=== PATIENT | female | born 1935 | race Caucasian/White ===

== ENCOUNTER → 2018-12-02 | Outpatient (CLI) | payer MEDICARE, BC ==
[~2018-12-02] MED LIST: ATOR1TAB19; ISOVUE-370 76% 100ML VIAL (Q9967) As Ordered ONE; LISI10TA4; METF500T13; SULF1TAB93
--- NOTE | 2018-12-02 16:08 | REP ---
CT of the abdomen and pelvis with IV contrast, without bowel contrast: Dual phase imaging is performed, initially during the arterial phase of imaging followed by scanning during the renal excretion phase of enhancement. The patient has as abnormal urine cytolog and year and histolog findings. The comparison is 07/15/2013. There is a mass along the posterior bladder wall measuring 3.7 cm in diameter. This was not present previously. There is no hydronephrosis or hydroureter. There are no renal masses. There are no renal cysts. The adrenals are unremarkable. The visualized lung fuentes are unremarkable. No lung nodules are identified. The hepatic parenchyma is homogeneous. There are surgical clips in the gallbladder fossa. The pancreas is unremarkable. The spleen is unremarkable except for calcified granulomas. The abdominal aorta is unremarkable except for calcified atheroma. There is no periaortic adenopathy or mass. The bowel and mesentery are unremarkable. Pelvis: There is diverticulosis of the sigmoid colon without evidence of diverticulitis. There is no ascites or adenopathy. There are no lytic, blastic or destructive skeletal changes. There is degenerative disc disease throughout the lumbar spine. Impression: There is a 3.7 cm posterior bladder wall mass. There is no hydronephrosis. There is no abdominal or retroperitoneal adenopathy or mass. Sigmoid diverticulosis without diverticulitis. Calcified granulomas in the spleen. Electronically Signed by Abdias Ruggiero MD 12/02/2018 04:00 P
== END ==
LOC: M RAD 13:32
PROVIDERS: ATTEND Registered Nurse Emergency
DX: R82.8 Abnormal findings on cytological and histological examination of urine (principal); K57.30 Diverticulosis of large intestine without perforation or abscess without bleeding; N32.89 Other specified disorders of bladder; D73.89 Other diseases of spleen
CPT/HCPCS: 74177; Q9967

== ENCOUNTER 2019-03-04 16:45 | Emergency (ER) | payer MEDICARE, BC ==
[~2019-03-04] VITALS: Ht 149.9 cm; Wt 53.6 kg
[2019-03-04] MEDS ORDERED: ATOR1TAB19 (16:56)
[2019-03-04] MEDS ORDERED: LISI10TA4 (16:56)
[2019-03-04] MEDS ORDERED: METF500T13 (16:56)
[2019-03-04] MEDS ORDERED: SULF1TAB93 (16:56)
[2019-03-04 17:34] LABS: BASO % 0.3 % (0.0-1.0); EOS # 0.2 10^3/uL (0.0-0.5); EOS % 1.5 % (0.0-3.0); HEMATOCRIT 31.6 % (36.0-47.0); LYMPH # 2.6 10^3/uL (1.5-5.0); LYMPH % 16.5 % (24.0-44.0); MEAN CORPUSCULAR HEMOGLOBIN 30.1 pg (27.0-33.0); MEAN CORPUSCULAR HGB CONC 31.6 g/dl (32.0-36.5); MEAN CORPUSCULAR VOLUME 95.2 fl (80.0-96.0); MONO # 1.1 10^3/uL (0.0-0.8); MONO % 6.9 % (0.0-5.0); NEUTROPHILS # 11.5 10^3/uL (1.5-8.5); NEUTROPHILS % 74.1 % (36.0-66.0); PLATELET COUNT, AUTOMATED 333 10^3/uL (150-450); RED BLOOD COUNT 3.32 10^6/uL (4.00-5.40); WHITE BLOOD COUNT 15.6 10^3/uL (4.0-10.0)
[2019-03-04] MEDS ORDERED: ONDANSETRON 4MG/2ML VIAL (J2405) IV ONE (17:45)
[2019-03-04] MEDS ORDERED: NS 1,000 ML IV ONE (17:45)
[2019-03-04] MEDS ORDERED: KETOROLAC 30 MG/ML VIAL (J1885) IV ONE (17:45)
[2019-03-04 17:58] LABS: ALBUMIN 3.1 GM/DL (3.2-5.2); ALT/SGPT 14 U/L (12-78); BILIRUBIN,DIRECT < 0.1 MG/DL (0.0-0.2); BILIRUBIN,TOTAL 0.2 MG/DL (0.2-1.0); BLOOD UREA NITROGEN 27 MG/DL (7-18); CALCIUM LEVEL 10.7 MG/DL (8.8-10.2); CARBON DIOXIDE LEVEL 22 MEQ/L (21-32); CHLORIDE LEVEL 109 MEQ/L (98-107); CREATININE FOR GFR 2.74 MG/DL (0.55-1.30); GLOMERULAR FILTRATION RATE 17.6 (>32); GLUCOSE, FASTING 206 MG/DL (70-100); LIPASE 413 U/L (73-393); SODIUM LEVEL 138 MEQ/L (136-145); TOTAL PROTEIN 7.2 GM/DL (6.4-8.2)
--- NOTE | 2019-03-04 18:15 | REPVR ---
PROCEDURE INFORMATION: Exam: CT Abdomen And Pelvis Without Contrast Exam date and time: 03/04/2019 5:37 PM Age: 84 years old Clinical history: Abdominal pain; Additional info: Abd pain TECHNIQUE: Imaging protocol: Computed tomography of the abdomen and pelvis without contrast. Radiation optimization: All CT scans at this facility use at least one of these dose optimization techniques: automated exposure control; mA and/or kV adjustment per patient size (includes targeted exams where dose is matched to clinical indication); or iterative reconstruction. COMPARISON: CT ABD PELVIS WITH CONTRAST 12/02/2018 2:16 PM FINDINGS: Lungs: Mild cylindrical bronchiectasis both lung bases. Bibasilar atelectasis. Mediastinum: A small hiatal hernia is present. Liver: Normal. No mass. Gallbladder and bile ducts: There has been a cholecystectomy. Pancreas: Normal. No ductal dilation. Spleen: The spleen demonstrates punctate calcifications, consistent with remote granulomatous organism exposure. Adrenals: There is bilateral adrenal hyperplasia. Kidneys and ureters: See Bladder Finding. Stomach and bowel: Moderate diverticulosis is present in the distal colon. No diverticulitis. Appendix: No evidence of appendicitis. Intraperitoneal space: Unremarkable. No free air. No significant fluid collection. Vasculature: The aorta demonstrates moderate atherosclerotic calcification. Lymph nodes: Calcified right hilar lymph nodes. Bladder: Moderate to severe hydroureteronephrosis on the right secondary to obstruction from a bladder mass. No obstructing calculus demonstrated. No significant hydroureteronephrosis on the left. Small amount of air within the bladder likely iatrogenic. Reproductive: Interval increase in the size of a mass in the bladder now measuring 6.6 x 3.7 x 3.5 cm extending posteriorly to invade the anterior aspect of the vagina obliterating the fat plane between the two. Stop hysterectomy Bones/joints: The spine demonstrates moderate degenerative changes. Mild to moderate central spinal stenosis L3-4, severe central spinal stenosis at L4-5 and mild central spinal stenosis at L5-S1 with multilevel disc space narrowing at L2-3, L3-4 and L5-S1. Soft tissues: Bilateral inguinal hernias. Other findings: Osteoporosis. IMPRESSION: 1. There has been a cholecystectomy. 2. Small hiatal hernia. 3. There is bilateral adrenal hyperplasia. 4. Moderate diverticulosis is present in the distal colon. No diverticulitis. 5. Moderate to severe hydroureteronephrosis on the right secondary to obstruction from a bladder mass. No obstructing calculus demonstrated. No significant hydroureteronephrosis on the left. 6. Interval increase in the size of a mass in the bladder now measuring 6.6 x 3.7 x 3.5 cm extending posteriorly to invade the anterior aspect of the vagina obliterating the fat plane between the two. Electronically signed by: Jonas Veras On 03/04/2019 18:15:05 PM
[2019-03-04 18:48] LABS: INR 1.29; PROTHROMBIN TIME 15.8 SECONDS (11.8-14.0)
[2019-03-04] MEDS ORDERED: cefTRIAXone SOD 1 GM in D5W MINI-BAG PLUS 50 ML IV ONE (19:45)
[2019-03-04 20:54] VITALS: BP 167/70
== END 2019-03-04 20:57 | disposition short-term general hospital (02) ==
LOC: M ED 16:45
DX: R10.9 Unspecified abdominal pain (principal); N13.39 Other hydronephrosis; N32.9 Bladder disorder, unspecified; N17.9 Acute kidney failure, unspecified; K44.9 Diaphragmatic hernia without obstruction or gangrene; K57.30 Diverticulosis of large intestine without perforation or abscess without bleeding; M81.0 Age-related osteoporosis without current pathological fracture; M51.36 Other intervertebral disc degeneration, lumbar region; M48.061 Spinal stenosis, lumbar region without neurogenic claudication; I11.9 Hypertensive heart disease without heart failure; E11.9 Type 2 diabetes mellitus without complications; E78.5 Hyperlipidemia, unspecified; Z79.84 Long term (current) use of oral hypoglycemic drugs; Z79.899 Other long term (current) drug therapy
CPT/HCPCS: 36415; 74176; 80048; 80076; 81001; 83605; 83690; 85025; 85610; 87086; 96374; 96375; 99284; J0696; J1885; J2405

== ENCOUNTER → 2019-04-15 | Outpatient (CLI) | payer MEDICARE, BC ==
--- NOTE | 2019-04-15 12:08 | REP ---
RIGHT UPPER EXTREMITY VENOUS ULTRASOUND: HISTORY: Right arm swelling. 2 weeks status post port placement. FINDINGS: There is linear nonocclusive thrombus visible in the right axillary and right basilic vein proximally. Nonocclusive venous thrombosis is felt to be present here. The right subclavian, internal jugular, cephalic, and distal basilic veins are anechoic and compressible with normal color and pulsed Doppler interrogation. IMPRESSION: There is nonocclusive partial venous thrombosis involving the right axillary and proximal basilic vein. Otherwise negative. Electronically Signed by Luis Alberto Velasquez MD 04/15/2019 01:33 P
== END ==
LOC: M RAD 10:45
PROVIDERS: ATTEND Physician Assistant Medical
DX: I74.2 Embolism and thrombosis of arteries of the upper extremities (principal)
CPT/HCPCS: 93971; Q9967

== ENCOUNTER → 2019-05-14 | Outpatient (CLI) | payer MEDICARE, BC ==
--- NOTE | 2019-05-15 08:12 | REP ---
CT of the abdomen pelvis without and with IV contrast, multiphase imaging after IV contrast: Comparison is 03/04/2019. The patient has a known bladder mass along the posterior inferior bladder wall . No bladder mass is again identified today and measures 8.1 x 5.4 x 5.4 cm. Previously this mass measured 6.6 x 3.7 x 3.5 cm. The fat plane between the posterior inferior bladder wall and vaginal vault is obliterated as previously compatible with tumor invasion. There is right hydronephrosis as a consequence of the bladder mass. There has been interval placement of a percutaneous nephrostomy on the right. However, the hydronephrosis persists. There is no pelvic or periaortic adenopathy. No mesenteric adenopathy. No ascites. There is mild bronchiectasis in the visualized lower lung fuentes. The visualized lower lung fuentes otherwise unremarkable. The hepatic parenchyma is homogeneous. There are surgical clips in the gallbladder fossa. The pancreas and spleen are unremarkable except for splenic calcified granulomas. The adrenals are unremarkable. There is right hydronephrosis and right percutaneous nephrostomy. The left kidney is unremarkable. The abdominal aorta is unremarkable except for calcified atheroma. There is no periaortic adenopathy. There is descending colon/sigmoid colon diverticulosis without diverticulitis. This is unchanged. Pelvis: The appendix cannot be identified, however, there is no pericecal inflammation or abscess. The terminal ileum is unremarkable. There is no ascites. There are no lytic, blastic or destructive skeletal changes. There is advanced degenerative disc disease throughout the lumbar spine. There is spinal stenosis at L4-5. Impression: No bladder mass has increased size has invaded the soft tissues along the posterior bladder wall between the bladder and vaginal vault. There is right hydronephrosis. There is been interval placement of a percutaneous nephrostomy. The hydronephrosis persists. There is no pelvic, retroperitoneal or mesenteric adenopathy. There is no ascites. Multilevel lumbar spine degenerative disc disease with spinal stenosis at L 07/11. Electronically Signed by Abdias Ruggiero MD 05/15/2019 08:04 A
== END ==
LOC: M RAD 15:38
PROVIDERS: ATTEND Urology
DX: C67.8 Malignant neoplasm of overlapping sites of bladder (principal)
CPT/HCPCS: 74178; Q9967

== ENCOUNTER → 2019-06-22 | Outpatient (REF) | payer MEDICARE, BC ==
[~2019-06-22] MED LIST changes: -ISOVUE-370 76% 100ML VIAL (Q9967) As Ordered ONE
[2019-06-22 17:10] LABS: BASO % 0.2 % (0.0-1.0); EOS # 0.1 10^3/uL (0.0-0.5); EOS % 0.5 % (0.0-3.0); HEMATOCRIT 24.7 % (36.0-47.0); HEMOGLOBIN 7.9 g/dl (12.0-15.5); LYMPH % 10.7 % (24.0-44.0); MEAN CORPUSCULAR HEMOGLOBIN 30.6 pg (27.0-33.0); MEAN CORPUSCULAR VOLUME 95.7 fl (80.0-96.0); MONO # 1.2 10^3/uL (0.0-0.8); MONO % 6.2 % (0.0-5.0); NEUTROPHILS # 15.3 10^3/uL (1.5-8.5); NEUTROPHILS % 81.9 % (36.0-66.0); PLATELET COUNT, AUTOMATED 379 10^3/uL (150-450); RED BLOOD COUNT 2.58 10^6/uL (4.00-5.40); WHITE BLOOD COUNT 18.7 10^3/uL (4.0-10.0)
[2019-06-22 17:41] LABS: ALT/SGPT 10 U/L (12-78); BILIRUBIN,TOTAL 0.2 MG/DL (0.2-1.0); BLOOD UREA NITROGEN 8 MG/DL (7-18); C REACTIVE PROTEIN QUANTITATIV 6.24 MG/DL (0.00-0.30); CALCIUM LEVEL 8.8 MG/DL (8.8-10.2); CARBON DIOXIDE LEVEL 26 MEQ/L (21-32); CHLORIDE LEVEL 99 MEQ/L (98-107); CREATININE FOR GFR 0.73 MG/DL (0.55-1.30); GLOMERULAR FILTRATION RATE > 60.0 (>32); GLUCOSE, FASTING 139 MG/DL (70-100); POTASSIUM SERUM 4.1 MEQ/L (3.5-5.1); SODIUM LEVEL 133 MEQ/L (136-145)
[2019-06-22 18:18] LABS: ERYTHROCYTE SEDIMENTATION RATE > 140 mm/hr (0-30)
== END ==
LOC: M LAB REF 16:34
DX: C67.8 Malignant neoplasm of overlapping sites of bladder (principal)

== ENCOUNTER → 2020-02-20 | Outpatient (CLI) | payer MEDICARE, BC ==
[~2020-02-20] MED LIST changes: +AMLO1TAB24 PO; +CALC600T60 PO; +GLUCCAP4 PO; +KEYT1INJ IV; +LEXA5TAB13 PO; -METF500T13; +METF500T13 PO; +OMEP-218 PO; +[UNRECOGNIZED DRUG - REMARK]
== END ==
LOC: M LABSMTC 09:58
PROVIDERS: ATTEND Anesthesiology
DX: Z01.812 Encounter for preprocedural laboratory examination (principal); Z20.828 Contact with and (suspected) exposure to other viral communicable diseases

== ENCOUNTER 2020-02-25 10:55 | Day surgery (SDC) | payer MEDICARE, BC ==
[~2020-02-25] VITALS: Ht 149.9 cm; Wt 54.4 kg
[~2020-02-25 10:55] MED LIST changes: +BSS IRR 500ML/OMIDRIA 4ML IRR BAG (OR ONLY) (J1097 PER ML) As Ordered ONE; +CEFUROXIME 1MG/0.1ML INTRACAMERAL INJ As Ordered ONE; +DUOVISC (0.50ML VISCOAT/0.55ML PROVISC) OPHTH KIT As Ordered ONE; -KEYT1INJ IV; +MIDAZOLAM INJ 2MG/2ML VIAL (J2250 PER 1MG) As Ordered ONE; +OFLOXACIN 0.3 % (OCUFLOX) OPTH SOL 5ML OS ONE; +PHENYLEPHRINE 2.5% OPHTH SOL 2ML OS ONE; +POVIDONE-IODINE 5% OPHTH PREP SOL 30ML As Ordered ONE; +PROPARACAINE 0.5% OPHTH SOL 15ML OS ONE; +TROPICAMIDE 1% OPHTH SOLN 2ML OS ONE; +fentaNYL 100 MCG/2 ML INJECTION (J3010) As Ordered ONE
[2020-02-25] MEDS ORDERED: KEYT1INJ IV (11:24)
[2020-02-25 13:30] VITALS: BP 198/87
== END 2020-02-25 13:35 | disposition home or self-care (01) ==
LOC: M SDC 10:55
PROVIDERS: ATTEND Ophthalmology
DX: H25.12 Age-related nuclear cataract, left eye (principal); I10 Essential (primary) hypertension; E11.9 Type 2 diabetes mellitus without complications; E78.5 Hyperlipidemia, unspecified; M12.9 Arthropathy, unspecified; R94.31 Abnormal electrocardiogram [ECG] [EKG]; C67.9 Malignant neoplasm of bladder, unspecified; Z79.84 Long term (current) use of oral hypoglycemic drugs; Z79.899 Other long term (current) drug therapy; Z90.710 Acquired absence of both cervix and uterus; Z92.21 Personal history of antineoplastic chemotherapy
CPT/HCPCS: 66984; J2250; J3010; V2632

== ENCOUNTER → 2020-07-05 | Outpatient (CLI) | payer MEDICARE, BC ==
[~2020-07-05] MED LIST changes: -BSS IRR 500ML/OMIDRIA 4ML IRR BAG (OR ONLY) (J1097 PER ML) As Ordered ONE; -CEFUROXIME 1MG/0.1ML INTRACAMERAL INJ As Ordered ONE; -DUOVISC (0.50ML VISCOAT/0.55ML PROVISC) OPHTH KIT As Ordered ONE; +GASTROGRAFIN SOLUTION 30ML (Q9963) As Ordered ONE; +ISOVUE-370 76% 100ML VIAL As Ordered ONE; +KEYT1INJ IV; +LISI10TA22; -LISI10TA4; -MIDAZOLAM INJ 2MG/2ML VIAL (J2250 PER 1MG) As Ordered ONE; -OFLOXACIN 0.3 % (OCUFLOX) OPTH SOL 5ML OS ONE; -PHENYLEPHRINE 2.5% OPHTH SOL 2ML OS ONE; -POVIDONE-IODINE 5% OPHTH PREP SOL 30ML As Ordered ONE; -PROPARACAINE 0.5% OPHTH SOL 15ML OS ONE; -TROPICAMIDE 1% OPHTH SOLN 2ML OS ONE; -fentaNYL 100 MCG/2 ML INJECTION (J3010) As Ordered ONE
--- NOTE | 2020-07-05 18:21 | REP ---
INDICATION: UROTHELIAL CA. COMPARISON: CT abdomen lung windows 05/14/2019, PA chest 02/02/2013 TECHNIQUE: Bolus 100 mL Isovue 370 scanning through the chest with coronal and sagittal reconstructions. FINDINGS: Some minor dependent atelectatic changes posteriorly in the mid and lower lung zones. Some cylindrical bronchiectatic changes are seen. Small calcified granuloma about 2 x 3 mm on image 57 in the lateral basal segment right lower lobe posterior axillary line. Some subpleural scarring posteriorly in the right apex and superiorly in both apices. The right upper lobe and right middle lobe are otherwise unremarkable. The left lung shows some curvilinear fibro atelectatic change in the inferior lingular segment. Left upper lobe was otherwise unremarkable. The left lower lobe showed some peripheral subpleural fibrotic changes lateral basal segment and a calcified granuloma medial basal segment but no other significant finding. No calcified pleural plaque or pleural based mass. No pneumothorax or pneumomediastinum. Heart not grossly enlarged there is no pericardial thickening or effusion. The main, right, left and visualized lobar pulmonary arteries are without filling defects. The aorta has calcifications at the arch but is without aneurysm or dissection. Bone windows show sternum, manubrium, medial clavicles, visualized portions of scapula, humeral heads, ribs and spine without destructive lesion or definite fracture. There are marginal osteophytes throughout the spine. The upper abdomen tiny hiatal hernia suggested without reflux. Remnants of a recent meal fill the stomach along with oral contrast. Please see CT abdomen report for full details of the upper abdominal structures IMPRESSION: 1. Some calcified granulomas in bilateral lower lung zones, subpleural fibrotic changes bilaterally, curvilinear fibro atelectatic change in the inferior lingular segment and cylindrical bronchiectasis noted. 2. No aortic aneurysm or dissection. Central pulmonary arteries without filling defects. Coronary artery calcifications noted. No significant or acute finding. <Electronically signed by Juan Isabel > 07/05/20 [id number]
--- NOTE | 2020-07-05 18:42 | REP ---
INDICATION: UROTHELIAL CA. COMPARISON: CT 05/14/2019 TECHNIQUE: Oral Gastrografin per our protocol with 2 doses of the 10 mL in 290 mL clear liquid. Bolus of Isovue 371 mL given with scanning through the abdomen and pelvis and both coronal and sagittal reconstructions. Delayed images through the abdomen. FINDINGS: CT abdomen: There is a small hiatal hernia evident. Retained food from the recent meal fills the stomach along with some oral contrast. That oral contrast extends into the colon. There is no hepatosplenomegaly. There is no hepatic or splenic mass, intrahepatic biliary dilatation, cyst or ascites. Gallbladder absent with the surgical clips in the fossa. Adrenal glands unremarkable pancreas shows common duct and pancreatic duct mildly prominent but unchanged consistent with post cholecystectomy. No pancreatic mass. Abdominal aorta is calcified as are celiac axis, splenic artery, origins of the renal arteries and the iliac vessels. Kidneys show no stone, mass or cyst. Left hydronephrosis. On the right there is an extrarenal pelvis. Ureters show normal course proximally and then deviate anteriorly to the right of midline into an urostomy pouch in the right mid abdomen. The ostomy transits the right rectus muscle into the right abdominal wall. It is not distended. Small bowel loops are fluid-filled but not abnormally dilated. There is no pathologic sized periaortic, or other retroperitoneal or mesenteric lymphadenopathy. See no sign of colitis in the right, transverse colon or the flexures. There is diverticulosis of the left colon without diverticulitis. Lung window review of all CT slices shows no perforation or free air. No mesenteric or abdominal ascites or mass. Bone windows show vacuum phenomenon and disc space narrowing at throughout the lower lumbar spine from L2-3 through L5-S1. No compression deformity or destructive lesion. Facet arthropathy lower lumbar spine without spondylolysis or spondylolisthesis. Lower thoracic spine intact. Visualized ribs intact. CT pelvis: Sacrum, SI joints, iliac bones, acetabula E and ischia are without fracture or destructive lesion. Bony hips show left femoral head bone island at the basicervical region. This is stable there is been interval cystectomy. Uterus is absent. Vaginal cuff is intact. The distal left colon sigmoid and rectum are without acute findings there is some diverticulosis of the sigmoid there are few small nodes about the cecum but these are unchanged and I see no pericecal inflammatory change. No ventral, umbilical or inguinal hernia nor pathologic sized inguinal adenopathy. No pelvic lymphadenopathy. Small bowel loops in the deep pelvis fluid-filled but unremarkable and all the way to the cecum and ileocecal valve. IMPRESSION: 1. Status post cystectomy with the ureteral diversion in the ileostomy is collapsed and grossly patent through the hiatus in the right rectus muscle. No significant hydronephrosis of those an extrarenal pelvis now visible on the right side no renal mass stone or cyst. 2. No evidence of the recurrent mass in the pelvis, abdominal or pelvic pathologic sized adenopathy, ascites perforation, free air or signs of obstruction. 3. Prior cholecystectomy. Adrenal glands, pancreas and spleen grossly unremarkable. Small hiatal hernia. 4. Diverticulosis left colon and sigmoid without diverticulitis, colitis, appendicitis or other acute finding <Electronically signed by Juan Isabel > 07/05/20 [id number]
== END ==
LOC: M RAD 16:01
PROVIDERS: ATTEND Nurse Practitioner
DX: C68.9 Malignant neoplasm of urinary organ, unspecified (principal)
CPT/HCPCS: 71260; 74177; Q9963; Q9967

== ENCOUNTER → 2021-03-14 | Outpatient (CLI) | payer MEDICARE, BC ==
[~2021-03-14] MED LIST changes: +BACTDSTA; -SULF1TAB93
--- NOTE | 2021-03-14 16:45 | REPVR ---
PROCEDURE INFORMATION: Exam: CT Chest With Contrast; Diagnostic Exam date and time: 03/14/2021 2:52 PM Age: 86 years old Clinical indication: Condition or disease; Other: Bladder CA TECHNIQUE: Imaging protocol: Diagnostic computed tomography of the chest with contrast. Radiation optimization: All CT scans at this facility use at least one of these dose optimization techniques: automated exposure control; mA and/or kV adjustment per patient size (includes targeted exams where dose is matched to clinical indication); or iterative reconstruction. Contrast material: ISOVUE 370; Contrast volume: 100 ml; Contrast route: INTRAVENOUS (IV); COMPARISON: CT Chest with contrast 07/05/2020 5:44 PM FINDINGS: Lungs: There is mild atelectasis at the lung bases. There is evidence of previous granulomatous reaction, with unchanged appearance. Pleural spaces: No pleural effusion. No pneumothorax. Heart: Borderline cardiomegaly. No pericardial effusion. Pulmonary arteries: There are no abnormal filling defects within the pulmonary arterial system. The examination is negative for pulmonary thromboembolism. Aorta: The thoracic aorta is normal caliber. No aneurysm or dissection is seen. Lymph nodes: In the upper abdomen, retroperitoneal lymph nodes are prominent, measuring up to 9.7 mm. These are nonspecific but given the provided clinical history, are concerning for metastatic disease. Small to mildly prominent mediastinal and hilar lymph nodes remain within upper limits of normal. Diaphragm: Small hiatal hernia. Intestine: Several air-fluid levels are seen in the bowel, may reflect ileus or obstruction. Bones/joints: Spinal degenerative changes. No acute fracture. Soft tissues: Unremarkable. IMPRESSION: 1. No pulmonary embolism identified. 2. Small to mildly prominent mediastinal and hilar lymph nodes remain within upper limits of normal. 3. Small hiatal hernia. 4. Several air-fluid levels are seen in the bowel, may reflect ileus or obstruction. Electronically signed by: Selena Armijo On 03/14/2021 16:45:23 PM
--- NOTE | 2021-03-14 16:58 | REPVR ---
PROCEDURE INFORMATION: Exam: CT Abdomen And Pelvis With Contrast Exam date and time: 03/14/2021 2:52 PM Age: 86 years old Clinical indication: Condition or disease; Other: Bladder cancer TECHNIQUE: Imaging protocol: Computed tomography of the abdomen and pelvis with contrast. Radiation optimization: All CT scans at this facility use at least one of these dose optimization techniques: automated exposure control; mA and/or kV adjustment per patient size (includes targeted exams where dose is matched to clinical indication); or iterative reconstruction. Contrast material: ISOVUE 370; Contrast volume: 100 ml; Contrast route: INTRAVENOUS (IV); COMPARISON: CT ABD PELVIS WITH CONTRAST 07/05/2020 5:44 PM FINDINGS: Diaphragm: Small hiatal hernia. Liver: There is a diffuse decrease in hepatic parenchymal density, consistent with fatty infiltration. There are no focal liver lesions present. Gallbladder and bile ducts: Cholecystectomy. Pancreas: The pancreas is normal. Spleen: The spleen is normal. Adrenal glands: The adrenal glands are normal. Kidneys and ureters: Right ureteral stent extends through the neobladder and external to the patient. No hydronephrosis. No renal mass detected. No nephrolithiasis. Stomach and bowel: Diverticulosis coli is noted, with no inflammatory changes to indicate diverticulitis. Multiple air-fluid levels are seen in the bowel. No focal obstructing lesion identified. Consider ileus. Appendix: No evidence of appendicitis. Intraperitoneal space: No free air. No free fluid. Vasculature: Atherosclerotic vascular disease is noted. There is no evidence of an abdominal aortic aneurysm. Lymph nodes: Retroperitoneal lymph nodes measure up to 9 mm. These are nonspecific, but given the provided clinical history, metastatic disease must be considered. Urinary bladder: Previous cystectomy with neobladder construction. Reproductive: Apparent hysterectomy. Bones/joints: Apparent radiation changes adjacent to the symphysis pubis bilaterally. Spinal degenerative changes are noted. IMPRESSION: 1. Previous cystectomy with neobladder construction. 2. Right ureteral stent extends through the neobladder and external to the patient. 3. Prominent retroperitoneal lymph nodes are nonspecific but concerning for metastatic disease, given the provided history of bladder neoplasm. These are stable in appearance compared to 07/05/2020. 4. Diverticulosis coli. 5. Likely ileus. 6. Probable postradiation changes adjacent to the symphysis pubis bilaterally. 7. Small hiatal hernia. Electronically signed by: Selena Armijo On 03/14/2021 16:58:26 PM
== END ==
LOC: M RAD 12:44
PROVIDERS: ATTEND Nurse Practitioner
DX: C67.8 Malignant neoplasm of overlapping sites of bladder (principal)
CPT/HCPCS: 71260; 74177; Q9963; Q9967

== ENCOUNTER → 2021-04-04 | Outpatient (CLI) | payer MEDICARE, BC ==
[~2021-04-04] MED LIST changes: -GASTROGRAFIN SOLUTION 30ML (Q9963) As Ordered ONE; -ISOVUE-370 76% 100ML VIAL As Ordered ONE; +OMEP-173 PO; -OMEP-218 PO
== END ==
LOC: M WUC 13:18
PROVIDERS: ATTEND Nurse Practitioner Family
DX: M25.512 Pain in left shoulder (principal); W01.0XXA Fall on same level from slipping, tripping and stumbling without subsequent striking against object, initial encounter

== ENCOUNTER → 2021-09-27 | Outpatient (CLI) | payer MEDICARE, BC ==
[~2021-09-27] MED LIST changes: +LEVO75CA2 PO
== END ==
LOC: M LABSMTC 10:00
PROVIDERS: ATTEND Urology
DX: Z20.828 Contact with and (suspected) exposure to other viral communicable diseases (principal)

== ENCOUNTER → 2021-11-09 | Outpatient (CLI) | payer MEDICARE, BC | LOC: M LABSMTC 09:35 | PROVIDERS: ATTEND Urology | DX: Z20.822 Contact with and (suspected) exposure to COVID-19 (principal); Z11.52 Encounter for screening for COVID-19 ==

== ENCOUNTER 2021-11-13 18:36 | Emergency (ER) | payer MEDICARE, BC ==
[~2021-11-13] VITALS: Ht 152.4 cm; Wt 59.1 kg
[~2021-11-13 18:36] MED LIST changes: -ATOR1TAB19; +ATOR1TAB19 PO
[2021-11-13 18:37] VITALS: BP 162/70
[2021-11-13] MEDS ORDERED: LATANOPROST (20:02)
[2021-11-13] MEDS ORDERED: DORZ2SOL5 OU (20:02)
[2021-11-13] MEDS ORDERED: FLUO1OPD OS (20:02)
[2021-11-13] MEDS ORDERED: MOXI0.5S OS (20:02)
[2021-11-14] MEDS ORDERED: CYAN100050 PO (19:19)
[2021-11-14] MEDS ORDERED: VITA100093 PO (19:19)
[2021-11-14] MEDS ORDERED: REFR0.5D8 OU (19:19)
[2021-11-14] MEDS ORDERED: LEVO50TA5 PO (19:19)
[2021-11-14] MEDS ORDERED: XALA0.007 OU (19:19)
[2021-11-14] MEDS ORDERED: BIOT1CAP2 PO (19:19)
[2021-11-14] MEDS ORDERED: PRESCAP PO (19:19)
== END 2021-11-13 22:33 | disposition left against medical advice (07) ==
LOC: M ED 18:36
DX: Z53.21 Procedure and treatment not carried out due to patient leaving prior to being seen by health care provider (principal)

== ENCOUNTER 2021-11-14 09:16 | Inpatient (IN) | payer MEDICARE, BC ==
[~2021-11-14] VITALS: Ht 152.4 cm; Wt 61.2 kg
[~2021-11-14 09:16] MED LIST changes: +DORZ2SOL5 OU; +FLUO1OPD OS; +LATANOPROST; +MOXI0.5S OS; +PIPERACILLIN/TAZOBACTAM SOD 2.25 GM in D5W MINI-BAG PLUS 50 ML IV SCH
[2021-11-14] MEDS ORDERED: ACETAMINOPHEN TAB 650MG DOSE (2X325MG) PO ONE (11:30)
[2021-11-14 12:57] LABS: HEMATOCRIT 36.2 % (36.0-47.0); HEMOGLOBIN 11.8 g/dl (12.0-15.5); MEAN CORPUSCULAR HEMOGLOBIN 33.1 pg (27.0-33.0); MEAN CORPUSCULAR HGB CONC 32.6 g/dl (32.0-36.5); MEAN CORPUSCULAR VOLUME 101.4 fl (80.0-96.0); PLATELET COUNT, AUTOMATED 199 10^3/uL (150-450); RED BLOOD COUNT 3.57 10^6/uL (4.00-5.40); WHITE BLOOD COUNT 28.7 10^3/uL (4.0-10.0)
[2021-11-14 13:10] LABS: LYMPHOCYTES 5 % (16-44); MONOCYTES 1 % (0-5); NEUTROPHILS 86 % (28-66)
[2021-11-14 13:11] LABS: ANISOCYTOSIS 1+; PLATELET ESTIMATE NORMAL (NORMAL)
[2021-11-14 13:35] LABS: ALBUMIN 3.2 GM/DL (3.2-5.2); ALT/SGPT 984 U/L (12-78); BILIRUBIN,DIRECT < 0.1 MG/DL (0.0-0.2); BILIRUBIN,TOTAL 0.7 MG/DL (0.2-1.0); CK-MB VALUE MASS < 1.0 NG/ML (<3.6); CPK CREATINE PHOSPHOKINASE 88 U/L (26-192); MB/CK RELATIVE INDEX 1.14 (< OR =4); TOTAL PROTEIN 7.5 GM/DL (6.4-8.2)
[2021-11-14 14:32] LABS: HEPATITIS B SURFACE ANTIGEN NEGATIVE (NEGATIVE)
[2021-11-14 14:59] LABS: HEPATITIS B CORE ANTIBODY IGM NEGATIVE (NEGATIVE)
[2021-11-14 15:12] LABS: HEPATITIS C VIRUS ABY INDEX < 0.0 INDEX (<0.8)
[2021-11-14 15:30] LABS: APPEARANCE, URINE MANUAL TURBID (CLEAR); BILIRUBIN, URINE MANUAL NEGATIVE (NEGATIVE); BLOOD URINE MANUAL POSITIVE (NEGATIVE); COLOR, URINE MANUAL AMBER (YELLOW); GLUCOSE, URINE (UA) MANUAL NEGATIVE (NEGATIVE); KETONE, URINE MANUAL 1+ mg/dL (NEGATIVE); LEUKOCYTE ESTERASE, URINE MAN POSITIVE (NEGATIVE); NITRITE, URINE MANUAL NEGATIVE (NEGATIVE); PROTEIN, URINE MANUAL 3+ mg/dL (NEGATIVE); SPECIFIC GRAVITY,URINE MANUAL 1.015 (1.002-1.035); UROBILINOGEN, URINE MANUAL NORMAL (NORMAL)
[2021-11-14 15:34] LABS: POTASSIUM SERUM 6.1 MEQ/L (3.5-5.1)
[2021-11-14 15:41] LABS: BACTERIA, URINE LARGE AMOUNT; GRANULAR CAST, URINE 0-1 /lpf; HYALINE CAST, URINE NONE SEEN /lpf (0-1); RENAL EPITHELIAL CELLS, URINE SMALL AMOUNT /hpf; SQUAMOUS EPITHELIAL CELL URINE NONE SEEN /hpf (SMALL AMT); TRANSITIONAL EPI CELLS, URINE SMALL AMOUNT /hpf; WBC, URINE TNTC /hpf (0-3); WHITE BLOOD CELL CAST, URINE 0-1 /lpf
[2021-11-14 15:42] LABS: AMORPHOUS SEDIMENT, URINE MOD AMOUNT (NEGATIVE)
[2021-11-14 15:59] LABS: RSV AMPLIFICATION NEGATIVE (NEGATIVE)
[2021-11-14] MEDS ORDERED: PIPERACILLIN/TAZOBACTAM SOD 3.375 GM in D5W MINI-BAG PLUS 50 ML IV ONE (16:55)
[2021-11-14] MEDS ORDERED: NS 1,000 ML IV ONE (16:55)
[2021-11-14] MEDS ORDERED: NS 770 ML in IV 1 EA IV ONE (17:05)
[2021-11-14 17:58] LABS: VENOUS HCO3 15.8 MEQ/L (23.0-27.0); VENOUS PARTIAL PRESSURE CO2 38.3 mmHg (38.0-50.0); VENOUS PARTIAL PRESSURE O2 45.9 mmHg (30.0-50.0); VENOUS PH 7.232 UNITS (7.330-7.430); VENOUS STANDARD HCO3 15.5 MEQ/L; VENOUS TOTAL CO2 16.9 MEQ/L (24.0-28.0)
[2021-11-14] MEDS ORDERED: VITA100093 PO (19:19)
[2021-11-14] MEDS ORDERED: LEVO50TA5 PO (19:19)
[2021-11-14] MEDS ORDERED: BIOT1CAP2 PO (19:19)
[2021-11-14] MEDS ORDERED: CYAN100050 PO (19:19)
[2021-11-14] MEDS ORDERED: XALA0.007 OU (19:19)
[2021-11-14] MEDS ORDERED: PRESCAP PO (19:19)
[2021-11-14] MEDS ORDERED: REFR0.5D8 OU (19:19)
[2021-11-14] MEDS ORDERED: HOME MED LIST COMPLETE! XX SCH (19:25)
[2021-11-14] MEDS: COSOPT OCUMETER PLUS 10ML (DORZOLAMIDE/TIMOLOL) OU SCH (21:00)
[2021-11-14] MEDS: LATANOPROST 0.005% OPHTH SOLN 2.5 ML OU SCH (21:00)
[2021-11-14] MEDS: INSULIN LISPRO (NovoLOG) PER UNIT SC SCH (21:00)
[2021-11-14] MEDS: FLUOROMETHOLONE 0.1% OPHTH SUSP 5 ML BTL OS SCH (21:00)
[2021-11-14] MEDS ORDERED: ACETAMINOPHEN TAB 650MG DOSE (2X325MG) PO PRN (22:15)
[2021-11-14] MEDS ORDERED: POLYVINYL ALCOHOL OPHTH SOLN 15 ML(LIQUITEARS) OS PRN (22:15)
[2021-11-14] MEDS ORDERED: DEXTROSE 50% 50 ML SYRINGE IV PRN (22:15)
[2021-11-14] MEDS ORDERED: GLUCOSE 4GM CHEW TABLET PO PRN (22:15)
[2021-11-14] MEDS ORDERED: OMEPRAZOLE 20MG CAP PO PRN (22:15)
[2021-11-14] MEDS ORDERED: GLUCAGON INJ 1MG VIAL SC PRN (22:15)
[2021-11-14] MEDS ORDERED: NS 1,000 ML IV SCH (22:15)
[2021-11-14] MEDS: ATORVASTATIN 10 MG TAB PO SCH (22:47)
[2021-11-14] MEDS: HEPARIN SOD (PORCINE) 5000UNITS/ML 1ML VIAL/SYRINGE SC SCH (22:48)
[2021-11-14 23:13] VITALS: BP 140/65
[2021-11-15] MEDS ORDERED: PIPERACILLIN/TAZOBACTAM SOD 2.25 GM in D5W MINI-BAG PLUS 50 ML IV SCH (01:00)
[2021-11-15 04:16] VITALS: BP 117/67
[2021-11-15] MEDS: LEVOTHYROXINE 50MCG TABLET (0.05MG) PO SCH (05:27)
[2021-11-15 06:29] LABS: ALBUMIN 2.6 GM/DL (3.2-5.2); BILIRUBIN,TOTAL 0.3 MG/DL (0.2-1.0); CALCIUM LEVEL 8.1 MG/DL (8.8-10.2); CREATININE FOR GFR 3.43 MG/DL (0.55-1.30); GLOMERULAR FILTRATION RATE 13.5 (>32); POTASSIUM SERUM 4.1 MEQ/L (3.5-5.1); TOTAL PROTEIN 6.1 GM/DL (6.4-8.2)
[2021-11-15] MEDS: INSULIN LISPRO (NovoLOG) PER UNIT SC SCH ×4 (07:30→21:00)
[2021-11-15 07:58] VITALS: BP 144/60
[2021-11-15 08:30] LABS: BASO # 0.1 10^3/uL (0.0-0.2); BASO % 0.3 % (0.0-1.0); EOS # 0.4 10^3/uL (0.0-0.5); EOS % 2.2 % (0.0-3.0); HEMATOCRIT 32.6 % (36.0-47.0); HEMOGLOBIN 10.5 g/dl (12.0-15.5); LYMPH # 1.4 10^3/uL (1.5-5.0); MEAN CORPUSCULAR HEMOGLOBIN 32.2 pg (27.0-33.0); MEAN CORPUSCULAR HGB CONC 32.2 g/dl (32.0-36.5); MONO # 0.9 10^3/uL (0.0-0.8); MONO % 4.6 % (2.0-8.0); NEUTROPHILS # 17.1 10^3/uL (1.5-8.5); NEUTROPHILS % 84.6 % (36.0-66.0); PLATELET COUNT, AUTOMATED 158 10^3/uL (150-450); RED BLOOD COUNT 3.26 10^6/uL (4.00-5.40); WHITE BLOOD COUNT 20.2 10^3/uL (4.0-10.0)
[2021-11-15] MEDS: ESCITALOPRAM OXALATE 5MG TABLET (LEXAPRO) PO SCH (08:41)
[2021-11-15] MEDS: HEPARIN SOD (PORCINE) 5000UNITS/ML 1ML VIAL/SYRINGE SC SCH ×2 (08:41→21:14)
[2021-11-15] MEDS: COSOPT OCUMETER PLUS 10ML (DORZOLAMIDE/TIMOLOL) OU SCH ×2 (08:41→21:15)
[2021-11-15] MEDS: OCUVITE 1 TAB PO SCH (08:41)
[2021-11-15] MEDS: FLUOROMETHOLONE 0.1% OPHTH SUSP 5 ML BTL OS SCH ×2 (08:41→21:15)
[2021-11-15] MEDS ORDERED: VANCOMYCIN HCL 1,000 MG, VIAL MATE ADAPTER 1 EACH in D5W 250 ML IV ONE (11:00)
[2021-11-15] MEDS ORDERED: VANCOMYCIN INTERMITTENT/PULSE DOSING BY CLINICAL PHARMACIST PER DOSING PROTOCOL XX SCH (11:00)
[2021-11-15] MEDS ORDERED: LIDOCAINE 1% MDV 20ML VIAL As Ordered ONE (11:09)
[2021-11-15] MEDS: SODIUM BICARBONATE 75 MEQ in NS 0.45% 1,000 ML IV SCH ×2 (12:53→21:30)
[2021-11-15] MEDS: PIPERACILLIN/TAZOBACTAM SOD 2.25 GM in D5W MINI-BAG PLUS 50 ML IV SCH ×2 (12:54→21:13)
[2021-11-15 16:00] VITALS: BP 148/58
[2021-11-15] MEDS: amLODIPine 5 MG TAB PO SCH (16:34)
[2021-11-15] MEDS: SODIUM CHLORIDE 0.9% INJ 10 ML SYR IV SCH (18:22)
[2021-11-15 20:07] VITALS: BP 166/69
[2021-11-15 21:01] VITALS: BP 155/67
[2021-11-15] MEDS: ATORVASTATIN 10 MG TAB PO SCH (21:14)
[2021-11-15] MEDS: LATANOPROST 0.005% OPHTH SOLN 2.5 ML OU SCH (21:29)
[2021-11-16 00:10] VITALS: BP 143/63
[2021-11-16 04:30] VITALS: BP 166/73
[2021-11-16] MEDS: PIPERACILLIN/TAZOBACTAM SOD 2.25 GM in D5W MINI-BAG PLUS 50 ML IV SCH ×3 (05:00→21:33)
[2021-11-16] MEDS: LEVOTHYROXINE 50MCG TABLET (0.05MG) PO SCH (05:00)
[2021-11-16 05:01] LABS: BASO # 0.1 10^3/uL (0.0-0.2); BASO % 0.4 % (0.0-1.0); EOS # 0.4 10^3/uL (0.0-0.5); EOS % 3.2 % (0.0-3.0); HEMATOCRIT 28.8 % (36.0-47.0); HEMOGLOBIN 9.6 g/dl (12.0-15.5); LYMPH # 1.7 10^3/uL (1.5-5.0); LYMPH % 12.1 % (24.0-44.0); MEAN CORPUSCULAR HEMOGLOBIN 32.3 pg (27.0-33.0); MEAN CORPUSCULAR HGB CONC 33.3 g/dl (32.0-36.5); MONO # 0.8 10^3/uL (0.0-0.8); MONO % 5.7 % (2.0-8.0); NEUTROPHILS # 10.7 10^3/uL (1.5-8.5); NEUTROPHILS % 77.7 % (36.0-66.0); PLATELET COUNT, AUTOMATED 159 10^3/uL (150-450); RED BLOOD COUNT 2.97 10^6/uL (4.00-5.40); WHITE BLOOD COUNT 13.8 10^3/uL (4.0-10.0)
[2021-11-16 05:40] LABS: ALBUMIN 2.5 GM/DL (3.2-5.2); BILIRUBIN,TOTAL 0.3 MG/DL (0.2-1.0); CALCIUM LEVEL 7.9 MG/DL (8.8-10.2); CREATININE FOR GFR 2.67 MG/DL (0.55-1.30); GLOMERULAR FILTRATION RATE 18.1 (>32); MAGNESIUM LEVEL 1.5 MG/DL (1.8-2.4); PHOSPHORUS LEVEL 2.8 MG/DL (2.5-4.9); POTASSIUM SERUM 3.6 MEQ/L (3.5-5.1); TOTAL PROTEIN 5.6 GM/DL (6.4-8.2); VANCOMYCIN RANDOM 13.8 UG/ML
[2021-11-16] MEDS: SODIUM CHLORIDE 0.9% INJ 10 ML SYR IV SCH ×2 (05:58→17:36)
[2021-11-16 08:00] VITALS: BP 170/71
[2021-11-16] MEDS ORDERED: VANCOMYCIN HCL 1,000 MG, VIAL MATE ADAPTER 1 EACH in D5W 250 ML IV ONE (08:00)
[2021-11-16] MEDS: amLODIPine 5 MG TAB PO SCH (08:52)
[2021-11-16] MEDS: HEPARIN SOD (PORCINE) 5000UNITS/ML 1ML VIAL/SYRINGE SC SCH ×3 (08:52→21:24)
[2021-11-16] MEDS: INSULIN LISPRO (NovoLOG) PER UNIT SC SCH ×4 (08:52→21:00)
[2021-11-16] MEDS: ESCITALOPRAM OXALATE 5MG TABLET (LEXAPRO) PO SCH (08:52)
[2021-11-16] MEDS: FLUOROMETHOLONE 0.1% OPHTH SUSP 5 ML BTL OS SCH ×2 (08:53→21:23)
[2021-11-16] MEDS: OCUVITE 1 TAB PO SCH (08:53)
[2021-11-16] MEDS: COSOPT OCUMETER PLUS 10ML (DORZOLAMIDE/TIMOLOL) OU SCH ×2 (08:53→21:23)
[2021-11-16] MEDS: SODIUM BICARBONATE 75 MEQ in NS 0.45% 1,000 ML IV SCH ×2 (09:59→21:23)
[2021-11-16 10:10] VITALS: BP 147/60
[2021-11-16 14:00] VITALS: BP 150/56
[2021-11-16] MEDS ORDERED: POTASSIUM CHLORIDE 10MEQ SR TABLET PO ONE (14:30)
[2021-11-16] MEDS ORDERED: MAGNESIUM OXIDE 400MG TAB (MAG-OX) PO ONE (14:30)
[2021-11-16] MEDS: LACTOBACILLUS ACIDOPHILUS CAP (BACID) PO SCH (14:52)
[2021-11-16 21:05] VITALS: BP 151/56
[2021-11-16] MEDS: LATANOPROST 0.005% OPHTH SOLN 2.5 ML OU SCH (21:23)
[2021-11-16] MEDS: ATORVASTATIN 10 MG TAB PO SCH (21:24)
[2021-11-16] MEDS: SODIUM CHLORIDE 0.9% INJ 10 ML SYR IV PRN (22:17)
[2021-11-17] MEDS: PIPERACILLIN/TAZOBACTAM SOD 2.25 GM in D5W MINI-BAG PLUS 50 ML IV SCH ×3 (05:06→21:39)
[2021-11-17] MEDS: SODIUM CHLORIDE 0.9% INJ 10 ML SYR IV SCH ×2 (05:42→18:00)
[2021-11-17] MEDS: LEVOTHYROXINE 50MCG TABLET (0.05MG) PO SCH (05:43)
[2021-11-17] MEDS: HEPARIN SOD (PORCINE) 5000UNITS/ML 1ML VIAL/SYRINGE SC SCH ×3 (05:43→21:39)
[2021-11-17 05:58] LABS: BASO # 0.1 10^3/uL (0.0-0.2); BASO % 0.7 % (0.0-1.0); EOS # 0.4 10^3/uL (0.0-0.5); EOS % 4.2 % (0.0-3.0); HEMATOCRIT 26.5 % (36.0-47.0); HEMOGLOBIN 8.8 g/dl (12.0-15.5); LYMPH # 1.7 10^3/uL (1.5-5.0); LYMPH % 19.7 % (24.0-44.0); MEAN CORPUSCULAR HEMOGLOBIN 32.1 pg (27.0-33.0); MEAN CORPUSCULAR HGB CONC 33.2 g/dl (32.0-36.5); MEAN CORPUSCULAR VOLUME 96.7 fl (80.0-96.0); MONO # 0.7 10^3/uL (0.0-0.8); MONO % 8.5 % (2.0-8.0); NEUTROPHILS # 5.7 10^3/uL (1.5-8.5); NEUTROPHILS % 65.3 % (36.0-66.0); PLATELET COUNT, AUTOMATED 146 10^3/uL (150-450); RED BLOOD COUNT 2.74 10^6/uL (4.00-5.40); WHITE BLOOD COUNT 8.7 10^3/uL (4.0-10.0)
[2021-11-17 06:00] VITALS: BP 142/68
[2021-11-17 06:43] LABS: ALBUMIN 2.4 GM/DL (3.2-5.2); BILIRUBIN,TOTAL 0.4 MG/DL (0.2-1.0); CALCIUM LEVEL 7.6 MG/DL (8.8-10.2); CREATININE FOR GFR 2.01 MG/DL (0.55-1.30); GLOMERULAR FILTRATION RATE 25.1 (>32); MAGNESIUM LEVEL 1.2 MG/DL (1.8-2.4); PHOSPHORUS LEVEL 2.4 MG/DL (2.5-4.9); POTASSIUM SERUM 3.6 MEQ/L (3.5-5.1); TOTAL PROTEIN 5.2 GM/DL (6.4-8.2); VANCOMYCIN RANDOM 19.3 UG/ML
[2021-11-17] MEDS: INSULIN LISPRO (NovoLOG) PER UNIT SC SCH ×4 (07:30→20:56)
[2021-11-17] MEDS: SODIUM BICARBONATE 75 MEQ in NS 0.45% 1,000 ML IV SCH (08:29)
[2021-11-17] MEDS ORDERED: MAG SULF 1GM/100ML (MAG RUN) 1 GM in IV 1 EA IV ONE (09:00)
[2021-11-17] MEDS ORDERED: CALCIUM GLUCONATE 1,000 MG in D5W MINI-BAG PLUS 100 ML IV ONE (09:20)
[2021-11-17] MEDS: ESCITALOPRAM OXALATE 5MG TABLET (LEXAPRO) PO SCH (10:35)
[2021-11-17] MEDS: OCUVITE 1 TAB PO SCH (10:35)
[2021-11-17] MEDS: amLODIPine 5 MG TAB PO SCH (10:40)
[2021-11-17] MEDS: FLUOROMETHOLONE 0.1% OPHTH SUSP 5 ML BTL OS SCH ×2 (10:44→21:39)
[2021-11-17] MEDS: COSOPT OCUMETER PLUS 10ML (DORZOLAMIDE/TIMOLOL) OU SCH ×2 (10:44→21:39)
[2021-11-17] MEDS: LACTOBACILLUS ACIDOPHILUS CAP (BACID) PO SCH (10:44)
[2021-11-17] MEDS: SODIUM BICARBONATE 325 MG TAB PO SCH ×2 (11:25→21:39)
[2021-11-17] MEDS: SODIUM CHLORIDE 0.9% INJ 10 ML SYR IV PRN (11:26)
[2021-11-17] MEDS: OFLOXACIN 0.3 % (OCUFLOX) OPTH SOL 5ML OS SCH ×3 (13:10→21:40)
[2021-11-17 14:00] VITALS: BP 138/60
[2021-11-17] MEDS: ATORVASTATIN 10 MG TAB PO SCH (21:39)
[2021-11-17] MEDS: LATANOPROST 0.005% OPHTH SOLN 2.5 ML OU SCH (21:40)
[2021-11-17 22:00] VITALS: BP 160/64
[2021-11-17 22:30] VITALS: BP 144/56
[2021-11-18] MEDS: PIPERACILLIN/TAZOBACTAM SOD 2.25 GM in D5W MINI-BAG PLUS 50 ML IV SCH ×3 (05:59→21:54)
[2021-11-18] MEDS: HEPARIN SOD (PORCINE) 5000UNITS/ML 1ML VIAL/SYRINGE SC SCH ×3 (06:00→21:32)
[2021-11-18] MEDS: LEVOTHYROXINE 50MCG TABLET (0.05MG) PO SCH (06:00)
[2021-11-18] MEDS: SODIUM CHLORIDE 0.9% INJ 10 ML SYR IV SCH ×2 (06:01→15:44)
[2021-11-18 06:59] LABS: ALBUMIN 2.3 GM/DL (3.2-5.2); BILIRUBIN,TOTAL 0.4 MG/DL (0.2-1.0); CALCIUM LEVEL 7.8 MG/DL (8.8-10.2); CREATININE FOR GFR 1.78 MG/DL (0.55-1.30); GLOMERULAR FILTRATION RATE 28.8 (>32); POTASSIUM SERUM 3.3 MEQ/L (3.5-5.1); TOTAL PROTEIN 5.5 GM/DL (6.4-8.2)
[2021-11-18] MEDS: amLODIPine 5 MG TAB PO SCH (08:09)
[2021-11-18] MEDS: ESCITALOPRAM OXALATE 5MG TABLET (LEXAPRO) PO SCH (08:09)
[2021-11-18] MEDS: OCUVITE 1 TAB PO SCH (08:09)
[2021-11-18] MEDS: SODIUM BICARBONATE 325 MG TAB PO SCH ×2 (08:09→21:32)
[2021-11-18] MEDS: LACTOBACILLUS ACIDOPHILUS CAP (BACID) PO SCH (08:09)
[2021-11-18] MEDS: COSOPT OCUMETER PLUS 10ML (DORZOLAMIDE/TIMOLOL) OU SCH ×2 (08:10→21:33)
[2021-11-18] MEDS: FLUOROMETHOLONE 0.1% OPHTH SUSP 5 ML BTL OS SCH ×2 (08:10→21:35)
[2021-11-18] MEDS: OFLOXACIN 0.3 % (OCUFLOX) OPTH SOL 5ML OS SCH ×4 (08:10→21:34)
[2021-11-18] MEDS: INSULIN LISPRO (NovoLOG) PER UNIT SC SCH ×4 (08:11→21:00)
[2021-11-18] MEDS ORDERED: POTASSIUM CHLORIDE 10% LIQ 20 MEQ/15 ML UDC PO ONE (09:00)
[2021-11-18 14:00] VITALS: BP_SYST 150; BP_SYST 160; BP_DIAS 60; BP_DIAS 64
[2021-11-18] MEDS: ATORVASTATIN 10 MG TAB PO SCH (21:32)
[2021-11-18] MEDS: LATANOPROST 0.005% OPHTH SOLN 2.5 ML OU SCH (21:36)
[2021-11-18 22:00] VITALS: BP 160/63
[2021-11-19] MEDS: PIPERACILLIN/TAZOBACTAM SOD 2.25 GM in D5W MINI-BAG PLUS 50 ML IV SCH (05:53)
[2021-11-19] MEDS: LEVOTHYROXINE 50MCG TABLET (0.05MG) PO SCH (05:54)
[2021-11-19] MEDS: HEPARIN SOD (PORCINE) 5000UNITS/ML 1ML VIAL/SYRINGE SC SCH (05:54)
[2021-11-19] MEDS: SODIUM CHLORIDE 0.9% INJ 10 ML SYR IV SCH (05:55)
[2021-11-19 06:11] VITALS: BP 164/64
[2021-11-19 07:01] LABS: HEMATOCRIT 27.5 % (36.0-47.0); HEMOGLOBIN 9.2 g/dl (12.0-15.5); MEAN CORPUSCULAR HEMOGLOBIN 32.5 pg (27.0-33.0); MEAN CORPUSCULAR HGB CONC 33.5 g/dl (32.0-36.5); MEAN CORPUSCULAR VOLUME 97.2 fl (80.0-96.0); PLATELET COUNT, AUTOMATED 167 10^3/uL (150-450); RED BLOOD COUNT 2.83 10^6/uL (4.00-5.40); WHITE BLOOD COUNT 10.4 10^3/uL (4.0-10.0)
[2021-11-19 07:37] LABS: BASOPHILS 1 % (0-1); EOSINOPHILS 2 % (0-3); LYMPHOCYTES 27 % (16-44); METAMYELOCYTES 2 % (0-0); MONOCYTES 3 % (0-5); NEUTROPHILS 64 % (28-66)
[2021-11-19 07:38] LABS: CALCIUM LEVEL 7.7 MG/DL (8.8-10.2); CREATININE FOR GFR 1.75 MG/DL (0.55-1.30); GLOMERULAR FILTRATION RATE 29.4 (>32); POTASSIUM SERUM 3.2 MEQ/L (3.5-5.1)
[2021-11-19 07:39] LABS: ALBUMIN 2.3 GM/DL (3.2-5.2); BILIRUBIN,TOTAL 0.4 MG/DL (0.2-1.0); TOTAL PROTEIN 5.4 GM/DL (6.4-8.2)
[2021-11-19 07:41] LABS: PLATELET ESTIMATE NORMAL (NORMAL); POLYCHROMASIA 1+
[2021-11-19] MEDS: OCUVITE 1 TAB PO SCH (08:12)
[2021-11-19] MEDS: SODIUM BICARBONATE 325 MG TAB PO SCH (08:12)
[2021-11-19] MEDS: LACTOBACILLUS ACIDOPHILUS CAP (BACID) PO SCH (08:12)
[2021-11-19] MEDS: ESCITALOPRAM OXALATE 5MG TABLET (LEXAPRO) PO SCH (08:12)
[2021-11-19 08:13] VITALS: BP 164/65
[2021-11-19] MEDS: amLODIPine 5 MG TAB PO SCH (08:13)
[2021-11-19] MEDS: FLUOROMETHOLONE 0.1% OPHTH SUSP 5 ML BTL OS SCH (08:14)
[2021-11-19] MEDS: INSULIN LISPRO (NovoLOG) PER UNIT SC SCH (08:14)
[2021-11-19] MEDS: COSOPT OCUMETER PLUS 10ML (DORZOLAMIDE/TIMOLOL) OU SCH (08:15)
[2021-11-19] MEDS: OFLOXACIN 0.3 % (OCUFLOX) OPTH SOL 5ML OS SCH (08:15)
[2021-11-19] MEDS ORDERED: RISATAB3 PO (08:48)
[2021-11-19] MEDS ORDERED: SODI325T9 PO (08:48)
[2021-11-19] MEDS ORDERED: LEVO750T14 PO (08:48)
[2021-11-19] MEDS ORDERED: POTASSIUM CHLORIDE 10MEQ SR TABLET PO ONE (09:00)
== END 2021-11-19 10:30 | disposition home or self-care (01) | DRG 862 ==
LOC: M ED 09:16 → M ED INP 22:22 → ENRESERV 22:44 → M PCU 23:08 → M MSPAV 11-16 10:13
PROVIDERS: ADMIT Internal Medicine; ATTEND Internal Medicine
PROC: 05HB33Z Insertion of Infusion Device into Right Basilic Vein, Percutaneous Approach (ICD-10-PCS; principal; 2021-11-15 11:30)
DX: T81.40XA Infection following a procedure, unspecified, initial encounter (principal); A41.9 Sepsis, unspecified organism; E87.2 Acidosis; N17.9 Acute kidney failure, unspecified; N10 Acute pyelonephritis; E03.9 Hypothyroidism, unspecified; E11.9 Type 2 diabetes mellitus without complications; K21.9 Gastro-esophageal reflux disease without esophagitis; Z93.6 Other artificial openings of urinary tract status; R74.01 Elevation of levels of liver transaminase levels; H40.9 Unspecified glaucoma; F41.9 Anxiety disorder, unspecified; E87.5 Hyperkalemia; Z85.51 Personal history of malignant neoplasm of bladder; H10.32 Unspecified acute conjunctivitis, left eye; Z79.899 Other long term (current) drug therapy; Y84.6 Urinary catheterization as the cause of abnormal reaction of the patient, or of later complication, without mention of misadventure at the time of the procedure

== ENCOUNTER 2021-11-23 10:55 | Emergency (ER) | payer MEDICARE, BC ==
[~2021-11-23] VITALS: Ht 152.4 cm; Wt 61.1 kg
[~2021-11-23 10:55] MED LIST changes: +BIOT1CAP2 PO; +CYAN100050 PO; +LEVO50TA5 PO; +LEVO750T14 PO; -PIPERACILLIN/TAZOBACTAM SOD 2.25 GM in D5W MINI-BAG PLUS 50 ML IV SCH; +PRESCAP PO; +REFR0.5D8 OU; +RISATAB3 PO; +SODI325T9 PO; +VITA100093 PO; +XALA0.007 OU
[2021-11-23 12:55] LABS: BASO % 0.4 % (0.0-1.0); EOS # 0.3 10^3/uL (0.0-0.5); EOS % 2.6 % (0.0-3.0); HEMATOCRIT 33.1 % (36.0-47.0); HEMOGLOBIN 10.8 g/dl (12.0-15.5); LYMPH # 1.8 10^3/uL (1.5-5.0); LYMPH % 17.7 % (24.0-44.0); MEAN CORPUSCULAR HEMOGLOBIN 32.5 pg (27.0-33.0); MEAN CORPUSCULAR HGB CONC 32.6 g/dl (32.0-36.5); MEAN CORPUSCULAR VOLUME 99.7 fl (80.0-96.0); MONO # 0.8 10^3/uL (0.0-0.8); MONO % 8.2 % (2.0-8.0); NEUTROPHILS % 69.3 % (36.0-66.0); PLATELET COUNT, AUTOMATED 307 10^3/uL (150-450); RED BLOOD COUNT 3.32 10^6/uL (4.00-5.40); WHITE BLOOD COUNT 10.1 10^3/uL (4.0-10.0)
[2021-11-23 13:32] LABS: ALT/SGPT 64 U/L (12-78); BILIRUBIN,DIRECT < 0.1 MG/DL (0.0-0.2); BILIRUBIN,TOTAL 0.3 MG/DL (0.2-1.0); BLOOD UREA NITROGEN 24 MG/DL (7-18); C REACTIVE PROTEIN QUANTITATIV 0.98 MG/DL (0.00-0.30); CALCIUM LEVEL 8.7 MG/DL (8.8-10.2); CARBON DIOXIDE LEVEL 26 MEQ/L (21-32); CHLORIDE LEVEL 106 MEQ/L (98-107); CREATININE FOR GFR 1.98 MG/DL (0.55-1.30); GLOMERULAR FILTRATION RATE 25.5 (>32); GLUCOSE, FASTING 201 MG/DL (70-100); POTASSIUM SERUM 4.2 MEQ/L (3.5-5.1); SODIUM LEVEL 140 MEQ/L (136-145); TOTAL PROTEIN 6.8 GM/DL (6.4-8.2)
[2021-11-23 14:01] LABS: ERYTHROCYTE SEDIMENTATION RATE 65 mm/hr (0-30)
[2021-11-23 14:25] VITALS: BP 199/84
== END 2021-11-23 14:30 | disposition home or self-care (01) ==
LOC: M ED 10:55
DX: R22.41 Localized swelling, mass and lump, right lower limb (principal); E11.9 Type 2 diabetes mellitus without complications; E78.5 Hyperlipidemia, unspecified; I10 Essential (primary) hypertension

== ENCOUNTER → 2021-12-20 | Outpatient (CLI) | payer MEDICARE, BC | LOC: M LABSMTC 09:45 | PROVIDERS: ATTEND Urology | DX: Z20.822 Contact with and (suspected) exposure to COVID-19 (principal); Z11.52 Encounter for screening for COVID-19 ==

== ENCOUNTER → 2022-01-31 | Outpatient (CLI) | payer MEDICARE, BC | LOC: M LABSMTC 10:15 | PROVIDERS: ATTEND Urology | DX: Z20.822 Contact with and (suspected) exposure to COVID-19 (principal) ==

== ENCOUNTER → 2022-02-06 | Outpatient (CLI) | payer MEDICARE, BC | LOC: M WHC 10:46 | PROVIDERS: ATTEND Physician Assistant Medical | DX: Z13.820 Encounter for screening for osteoporosis (principal); N95.9 Unspecified menopausal and perimenopausal disorder; M85.851 Other specified disorders of bone density and structure, right thigh; M85.852 Other specified disorders of bone density and structure, left thigh | CPT/HCPCS: 77066; 77080; G0279 ==

== ENCOUNTER → 2022-02-06 | Outpatient (CLI) | payer MEDICARE, BC | LOC: M WHC 10:54 | PROVIDERS: ATTEND Physician Assistant | DX: Z12.31 Encounter for screening mammogram for malignant neoplasm of breast (principal); N63.20 Unspecified lump in the left breast, unspecified quadrant ==

== ENCOUNTER → 2022-02-20 | Outpatient (POV) | payer MEDICARE, BC ==
[~2022-02-20] VITALS: Ht 152.4 cm; Wt 57.3 kg
[2022-02-20 10:25] VITALS: BP 158/76
== END ==
LOC: M IRPOV 10:11
PROVIDERS: ATTEND Radiology Diagnostic Radiology
DX: N13.9 Obstructive and reflux uropathy, unspecified (principal); E11.9 Type 2 diabetes mellitus without complications; E78.5 Hyperlipidemia, unspecified; I10 Essential (primary) hypertension; R32 Unspecified urinary incontinence; Z79.890 Hormone replacement therapy; Z79.899 Other long term (current) drug therapy; Z85.51 Personal history of malignant neoplasm of bladder; Z90.710 Acquired absence of both cervix and uterus; Z96.0 Presence of urogenital implants; Z92.25 Personal history of immunosuppression therapy

== ENCOUNTER → 2022-03-07 | Outpatient (CLI) | payer MEDICARE, BC | LOC: M LABSMTC 10:49 | PROVIDERS: ATTEND Anesthesiology | DX: Z01.812 Encounter for preprocedural laboratory examination (principal); Z11.52 Encounter for screening for COVID-19 ==

== ENCOUNTER → 2022-03-20 | Outpatient (CLI) | payer MEDICARE, BC | LOC: M LABSMTC 11:04 | PROVIDERS: ATTEND Anesthesiology | DX: Z01.812 Encounter for preprocedural laboratory examination (principal); Z20.822 Contact with and (suspected) exposure to COVID-19 ==

== ENCOUNTER → 2022-03-22 | Outpatient (CLI) | payer MEDICARE, BC ==
[~2022-03-22] MED LIST changes: +CEPHALEXIN 500 MG CAP As Ordered ONE; +CEPHALEXIN 500 MG CAP PO ONE; +ISOVUE-300 61% 50ML VIAL As Ordered ONE
[2022-03-22 10:15] VITALS: BP 188/78
== END ==
LOC: M IRPRO 08:13
PROVIDERS: ATTEND Radiology Diagnostic Radiology
DX: N35.82 Other urethral stricture, female (principal)
CPT/HCPCS: 50688; C1729; C1769; Q9967

== ENCOUNTER → 2022-06-14 | Outpatient (CLI) | payer MEDICARE, BC ==
[~2022-06-14] MED LIST changes: -CEPHALEXIN 500 MG CAP As Ordered ONE; -CEPHALEXIN 500 MG CAP PO ONE; -ISOVUE-300 61% 50ML VIAL As Ordered ONE
== END ==
LOC: M LABSMTC 10:59
PROVIDERS: ATTEND Anesthesiology
DX: Z01.812 Encounter for preprocedural laboratory examination (principal); Z20.822 Contact with and (suspected) exposure to COVID-19

== ENCOUNTER → 2022-06-18 | Outpatient (CLI) | payer MEDICARE, BC ==
[~2022-06-18] MED LIST changes: +CEPHALEXIN 500 MG CAP As Ordered ONE; +CEPHALEXIN 500 MG CAP PO ONE; +ISOVUE-300 61% 100ML VIAL As Ordered ONE; +LIDOCAINE 1% MDV 20ML VIAL As Ordered ONE
[2022-06-18 12:25] VITALS: BP 172/70
== END ==
LOC: M IRPRO 10:29
PROVIDERS: ATTEND Radiology Diagnostic Radiology
DX: T83.89XA Other specified complication of genitourinary prosthetic devices, implants and grafts, initial encounter (principal)
CPT/HCPCS: 50688; C1769; C1887; Q9967

== ENCOUNTER → 2022-06-26 | Outpatient (POV) | payer MEDICARE, BC ==
[~2022-06-26] VITALS: Ht 152.4 cm; Wt 61.1 kg
[~2022-06-26] MED LIST changes: -CEPHALEXIN 500 MG CAP As Ordered ONE; -CEPHALEXIN 500 MG CAP PO ONE; -ISOVUE-300 61% 100ML VIAL As Ordered ONE; -LIDOCAINE 1% MDV 20ML VIAL As Ordered ONE
[2022-06-26 11:15] VITALS: BP 150/74
== END ==
LOC: M IRPOV 11:02
PROVIDERS: ATTEND Radiology Diagnostic Radiology
DX: Z43.6 Encounter for attention to other artificial openings of urinary tract (principal); Z90.6 Acquired absence of other parts of urinary tract

== ENCOUNTER → 2023-02-07 | Outpatient (CLI) | payer MEDICARE, BC ==
[~2023-02-07] MED LIST changes: +CYAN-1 PO; -CYAN100050 PO
[2023-02-07 14:42] LABS: CALCIUM LEVEL 9.1 MG/DL (8.3-10.6); CREATININE FOR GFR 1.13 MG/DL (0.55-1.30); GLOMERULAR FILTRATION RATE 48.5 (>32); POTASSIUM SERUM 4.7 MMOL/L (3.5-5.1)
== END ==
LOC: M PLALAB 12:11
PROVIDERS: ATTEND Physician Assistant
DX: N13.30 Unspecified hydronephrosis (principal)

== ENCOUNTER → 2023-02-14 | Outpatient (CLI) | payer MEDICARE, BC | LOC: M RAD 11:27 | PROVIDERS: ATTEND Physician Assistant | DX: N13.30 Unspecified hydronephrosis (principal) ==

== ENCOUNTER → 2024-02-03 | Outpatient (CLI) | payer MEDICARE, BC ==
[~2024-02-03] VITALS: Ht 152.4 cm; Wt 55.5 kg
[~2024-02-03] MED LIST changes: -KEYT1INJ IV; +LIDOCAINE 1% MDV 20ML VIAL As Ordered ONE; +MIDAZOLAM INJ 2MG/2ML VIAL As Ordered ONE; +NS 1,000 ML IV SCH; +PEMB100V2 IV; +ceFAZolin 2 GM/D5W 50 ML IV BAG As Ordered ONE; +fentaNYL 100 MCG/2 ML INJECTION As Ordered ONE
[2024-02-03 09:40] VITALS: TEMP 97.4
[2024-02-03] MEDS: ceFAZolin SOD 2 GM in IV 1 EA IV ONE (10:51)
[2024-02-03 12:30] VITALS: BP 173/83; O2SAT 97
== END ==
LOC: M IRPRO 09:26
PROVIDERS: ATTEND Physician Assistant
DX: C67.9 Malignant neoplasm of bladder, unspecified (principal)
CPT/HCPCS: 36590; 99152; J0690; J2250; J3010

== ENCOUNTER → 2024-05-26 | Outpatient (REF) | payer MEDICARE, BC ==
[~2024-05-26] MED LIST changes: -LEVO750T14 PO; +LEVO75TAB PO; -LIDOCAINE 1% MDV 20ML VIAL As Ordered ONE; -MIDAZOLAM INJ 2MG/2ML VIAL As Ordered ONE; -NS 1,000 ML IV SCH; -ceFAZolin 2 GM/D5W 50 ML IV BAG As Ordered ONE; -fentaNYL 100 MCG/2 ML INJECTION As Ordered ONE
[2024-05-26 19:02] LABS: ALBUMIN 3.6 G/DL (3.2-5.2); BILIRUBIN,TOTAL 0.6 MG/DL (0.3-1.2); CALCIUM LEVEL 9.1 MG/DL (8.3-10.6); CREATININE FOR GFR 1.28 MG/DL (0.55-1.30); GLOMERULAR FILTRATION RATE 41.9 (>32); POTASSIUM SERUM 5.2 MMOL/L (3.5-5.1); TOTAL PROTEIN 6.8 G/DL (5.7-8.2)
[2024-05-26 19:05] LABS: THYROXINE (T4) 9.6 UG/DL (4.5-10.9); TOTAL T3 68.7 NG/DL (60.0-181.0)
[2024-05-26 19:06] LABS: FREE T3 2.4 PG/ML (2.3-4.2); FREE T4 1.28 NG/DL (0.89-1.76); THYROID STIMULATING HORMONE 7.155 uIU/ML (0.55-4.78); TOTAL 25(OH) VITAMIN D 56.3 NG/ML (20.0-100.0)
[2024-05-26 19:25] LABS: HEMOGLOBIN A1c 6.3 % (4.0-6.0)
== END ==
LOC: M LABDRWAD 17:17
PROVIDERS: ATTEND Internal Medicine Endocrinology, Diabetes & Metabolism
DX: E04.9 Nontoxic goiter, unspecified (principal); E06.3 Autoimmune thyroiditis; E78.5 Hyperlipidemia, unspecified; E03.9 Hypothyroidism, unspecified; R80.9 Proteinuria, unspecified; G62.9 Polyneuropathy, unspecified; E11.65 Type 2 diabetes mellitus with hyperglycemia; E53.8 Deficiency of other specified B group vitamins; E55.9 Vitamin D deficiency, unspecified

== ENCOUNTER → 2024-07-27 | Outpatient (CLI) | payer MEDICARE, BC ==
[2024-07-27 13:48] LABS: ALBUMIN 3.4 G/DL (3.2-5.2); ALKALINE PHOSPHATASE 71 U/L (35-104); ALT/SGPT 10 U/L (7.0-40); AST/SGOT 17 U/L (<34); BILIRUBIN,TOTAL 0.7 MG/DL (0.3-1.2); BLOOD UREA NITROGEN 21 MG/DL (9-23); CARBON DIOXIDE LEVEL 24 MMOL/L (20-31); CHLORIDE LEVEL 108 MMOL/L (98-107); CREATININE FOR GFR 1.26 MG/DL (0.55-1.30); GLOMERULAR FILTRATION RATE 41.1 (>32); GLUCOSE, FASTING 125 MG/DL (74-106); MAGNESIUM LEVEL 1.5 MG/DL (1.8-2.4); PHOSPHORUS LEVEL 3.5 MG/DL (2.4-5.1); POTASSIUM SERUM 4.9 MMOL/L (3.5-5.1); SODIUM LEVEL 143 MMOL/L (136-145); TOTAL PROTEIN 6.5 G/DL (5.7-8.2)
[2024-07-27 13:49] LABS: PTH INTACT 27.8 PG/ML (18.5-88.0)
[2024-07-27 13:52] LABS: FREE T3 3.2 PG/ML (2.3-4.2); FREE T4 1.78 NG/DL (0.89-1.76); THYROID STIMULATING HORMONE 0.107 uIU/ML (0.55-4.78)
[2024-07-27 13:53] LABS: THYROXINE (T4) 11.9 UG/DL (4.5-10.9); TOTAL T3 86.6 NG/DL (60.0-181.0)
[2024-07-27 13:55] LABS: TOTAL 25(OH) VITAMIN D 58.9 NG/ML (20.0-100.0)
[2024-07-27 13:57] LABS: CORTISOL BASELINE 15.7 UG/DL (4.3-22.4)
[2024-07-27 14:00] LABS: VITAMIN B12 LEVEL > 2000 PG/ML (211-911)
[2024-07-28 08:42] LABS: T P ELECTROPHORESIS SO 6.3 g/dL (6.1-8.1)
== END ==
LOC: M LABDRWAD 09:11
PROVIDERS: ATTEND Internal Medicine Endocrinology, Diabetes & Metabolism
DX: E04.9 Nontoxic goiter, unspecified (principal); E06.3 Autoimmune thyroiditis; E78.5 Hyperlipidemia, unspecified; E03.9 Hypothyroidism, unspecified; R80.9 Proteinuria, unspecified; E07.9 Disorder of thyroid, unspecified

== ENCOUNTER → 2024-11-23 | Outpatient (CLI) | payer MEDICARE, BC ==
[~2024-11-23] MED LIST changes: -LEVO75CA2 PO; +LEVO75CA3 PO
[2024-11-23 14:59] LABS: THYROXINE (T4) 9.0 UG/DL (4.5-10.9); VITAMIN B12 LEVEL 1440 PG/ML (211-911)
[2024-11-23 15:01] LABS: TOTAL 25(OH) VITAMIN D 41.9 NG/ML (20.0-100.0)
[2024-11-23 15:03] LABS: FREE T4 1.17 NG/DL (0.89-1.76)
[2024-11-23 15:04] LABS: ALT/SGPT < 9 U/L (7.0-40); AST/SGOT 18 U/L (<34); CALCIUM LEVEL 9.3 MG/DL (8.3-10.6); CARBON DIOXIDE LEVEL 24 MMOL/L (20-31); CHLORIDE LEVEL 110 MMOL/L (98-107); CHOLESTEROL LEVEL 168 MG/DL (<200); CREATININE FOR GFR 1.43 MG/DL (0.55-1.30); GLOMERULAR FILTRATION RATE 35.3 (>32); LDL CHOLESTEROL 83.6 MG/DL (<100); MAGNESIUM LEVEL 1.7 MG/DL (1.8-2.4); POTASSIUM SERUM 5.0 MMOL/L (3.5-5.1); SODIUM LEVEL 144 MMOL/L (136-145); TRIGLYCERIDES LEVEL 134 MG/DL (<150)
[2024-11-23 15:27] LABS: ESTIMATED AVERAGE GLUCOSE 146.0 MG/DL (60-110)
[2024-11-23 16:19] LABS: TOTAL T3 82.5 NG/DL (60.0-181.0)
== END ==
LOC: M LABDRWAD 08:29
PROVIDERS: ATTEND Internal Medicine Endocrinology, Diabetes & Metabolism
DX: E04.9 Nontoxic goiter, unspecified (principal); E06.3 Autoimmune thyroiditis; E83.52 Hypercalcemia; E78.5 Hyperlipidemia, unspecified; G62.9 Polyneuropathy, unspecified; E55.9 Vitamin D deficiency, unspecified; E53.8 Deficiency of other specified B group vitamins; Z78.0 Asymptomatic menopausal state; R80.9 Proteinuria, unspecified; E03.9 Hypothyroidism, unspecified; E11.65 Type 2 diabetes mellitus with hyperglycemia

== ENCOUNTER → 2024-12-28 | Outpatient (REF) | payer MEDICARE, BC ==
[2024-12-28 14:01] LABS: ALT/SGPT 10.0 U/L (7.0-40); AST/SGOT 18.0 U/L (<34); CALCIUM LEVEL 8.9 MG/DL (8.3-10.6); CARBON DIOXIDE LEVEL 26.0 MMOL/L (20-31); CHLORIDE LEVEL 106.0 MMOL/L (98-107); CREATININE FOR GFR 1.65 MG/DL (0.55-1.30); GLOMERULAR FILTRATION RATE 29.7 (>32); POTASSIUM SERUM 4.8 MMOL/L (3.5-5.1); SODIUM LEVEL 141.0 MMOL/L (136-145)
[2024-12-28 14:02] LABS: FREE T4 1.44 NG/DL (0.89-1.76); THYROXINE (T4) 9.1 UG/DL (4.5-10.9)
[2024-12-28 14:05] LABS: TOTAL T3 81.7 NG/DL (60.0-181.0)
== END ==
LOC: M LABDRWAD 12:56
PROVIDERS: ATTEND Internal Medicine Endocrinology, Diabetes & Metabolism
DX: J13 Pneumonia due to Streptococcus pneumoniae (principal); E04.9 Nontoxic goiter, unspecified; E06.3 Autoimmune thyroiditis

== ENCOUNTER → 2025-03-08 | Outpatient (REF) | payer MEDICARE, BC ==
[~2025-03-08] MED LIST changes: -BACTDSTA; +SULF-8
[2025-03-08 17:53] LABS: ALT/SGPT 12.0 U/L (7.0-40); AST/SGOT 21.0 U/L (<34); CALCIUM LEVEL 8.7 MG/DL (8.3-10.6); CARBON DIOXIDE LEVEL 26.0 MMOL/L (20-31); CHLORIDE LEVEL 106.0 MMOL/L (98-107); CREATININE FOR GFR 1.66 MG/DL (0.55-1.30); GLOMERULAR FILTRATION RATE 29.3 (>32); POTASSIUM SERUM 5.0 MMOL/L (3.5-5.1); SODIUM LEVEL 141.0 MMOL/L (136-145)
[2025-03-08 17:54] LABS: FREE T4 1.36 NG/DL (0.89-1.76); THYROXINE (T4) 9.0 UG/DL (4.5-10.9)
[2025-03-08 17:55] LABS: TOTAL 25(OH) VITAMIN D 44.5 NG/ML (20.0-100.0); VITAMIN B12 LEVEL 1802.0 PG/ML (211-911)
[2025-03-08 18:17] LABS: ESTIMATED AVERAGE GLUCOSE 192.0 MG/DL (60-110)
== END ==
LOC: M LABDRWAD 16:43
PROVIDERS: ATTEND Internal Medicine Endocrinology, Diabetes & Metabolism
DX: R94.4 Abnormal results of kidney function studies (principal); E04.9 Nontoxic goiter, unspecified; E06.3 Autoimmune thyroiditis; E78.5 Hyperlipidemia, unspecified; E03.9 Hypothyroidism, unspecified; R80.9 Proteinuria, unspecified; G62.9 Polyneuropathy, unspecified; Z78.0 Asymptomatic menopausal state; E11.65 Type 2 diabetes mellitus with hyperglycemia; E53.8 Deficiency of other specified B group vitamins; E55.9 Vitamin D deficiency, unspecified